=== PATIENT | female | born 1990 | race Caucasian/White ===

== ENCOUNTER → 2018-11-14 14:22 | Observation (INO) ==
[2018-11-14 12:41] VITALS: BP 117/70
--- NOTE | 2018-11-14 15:27 | OB/GYN Procedure Note ---
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 Date of procedure: 11/14/18 Pre-op diagnosis: fourth degree perineal laceration Post-op diagnosis: same - Procedure Procedure: repair of fourth degree laceration Surgeon: Emilie Nunez Was there an embroidery assistant present: Yes Wire Straightener: Karen Garcia Anesthesia Type: Local Estimated blood loss (cc): 5 (lochia was light throughout the procedure) Procedure Complications: none Specimens collected: none Disposition: other (home) Findings: complete transection of the anal sphincter with a 1cm laceration of the rectal mucosa Narrative: The patient presented to triage after delivering an 8#8oz baby boy at an outside center. Her caregiver was not qualified to complete a high grade perineal laceration repair and she suspected a third or fourth degree laceration. After local was given and the patient was comfortable, the laceration was thoroughly examined. She was found to have a completely transected anal sphincter and on rectal exam, she was noted to have a 1cm long tear in the rectal mucosa. The mucosa was repaired with 4-0 Vicryl suture in running fashion. The fascia of the anal sphincter was brought together with four 2-0 Vicryl sutures, first at the superior aspect of the sphincter, second at the posterior aspect of the sphincter, third, at the inferior aspect of the sphincter, and then lastly, at the anterior aspect of the sphincter. At this point, using 3-0 Vicryl suture, a second degree repair was completed starting at the apex of the laceration proximal to the hymenal ring. The stitch was tied at the level of the hymenal ring. A second 3-0 Vicryl suture was placed at the hymenal ring and then the crown stitch was placed. Several crown stitches were needed to close the space. Then, the stitch was run from the anus up to the hymenal ring in a subcuticular manner to close the skin. The patient tolerated the procedure well with local anesthetic. She was discharged to home from triage with prescriptions for Grady (#12 tabs), Miralax, Colace, and Senna. She was instructed to use ice packs at the perineum and keep her stools very loose for the next two weeks. She is to follow up in the office for an exam of the repair in two weeks.
== END | disposition home or self-care (01) ==
LOC: 1NENULAB
PROVIDERS: ADMIT Registered Nurse; ATTEND Obstetrics & Gynecology